=== PATIENT | female | born 1990 | race African-American/Black ===

== ENCOUNTER 2016-06-11 21:04 | Emergency (ER) | payer MEDICAID ==
[2016-06-11 21:10] VITALS: BP 120/84
--- NOTE | 2016-06-11 22:43 | ED ---
Throat Pain/Nasal Congestion - History of Current Complaint Chief Complaint: EDEyeProblem Time Seen by Provider: 06/11/16 22:42 - Allergies/Home Medications Allergies/Adverse Reactions: Allergies Allergy/AdvReac Type Severity Reaction Status Date / Time No Known Allergies Allergy Verified 06/11/16 21:10 PMH/Surg Hx/FS Hx/Imm Hx Cardiovascular History: Denies: Hx Hypertension, Other Cardiovascular Problems/Disorders Respiratory History: Denies: Hx Asthma Psychiatric History: Reports: Hx Substance Abuse - Marijuana - Immunization History Date of Tetanus Vaccine: utd Date of Influenza Vaccine: utd Infectious Disease History: No Infectious Disease History: Denies: Traveled Outside the [place] in Last 30 Days - Social History Alcohol Use: Occasionally Hx Substance Use: Yes Substance Use Type: Reports: Marijuana Substance Use Comment - Amount & Last Used: 1 joint every other day Hx Tobacco Use: Yes Smoking Status (MU): Light Every Day Tobacco Smoker Type: Cigarettes Amount Used/How Often: 1-5/day Have You Smoked in the Last Year: Yes Physical Exam Vital Signs On Initial Exam: Initial Vitals Temp Pulse Resp BP Pulse Ox 98.6 F 75 15 120/84 100 06/11/16 21:07 06/11/16 21:07 06/11/16 21:07 06/11/16 21:07 06/11/16 21:07 - Bela Coma Scale Coma Scale Total: 15 Diagnostics - Vital Signs Vital Signs Temp Pulse Resp BP Pulse Ox 06/11/16 21:07 98.6 F 75 15 120/84 100 - Laboratory Lab Statement: Any lab studies that have been ordered have been reviewed, and results considered in the medical decision making process.
== END 2016-06-12 05:55 | disposition left against medical advice (07) ==
LOC: ED 21:04
DX: H53.8 Other visual disturbances (principal)

== ENCOUNTER 2016-08-04 11:03 | Emergency (ER) | payer SELFPAY ==
[2016-08-04] MEDS ORDERED: Ibuprofen TAB* 400 MG PO ONE (11:48)
--- NOTE | 2016-08-04 11:55 | RAD ---
HISTORY: Trauma with pain, left wrist COMPARISONS: None VIEWS: 3, Frontal, lateral, and oblique views of the left wrist FINDINGS: BONE DENSITY: Normal. BONES: There is no displaced fracture. JOINTS: There is no arthropathy. ALIGNMENT: There is no dislocation. SOFT TISSUES: Unremarkable. OTHER FINDINGS: None. IMPRESSION: NO ACUTE OSSEOUS INJURY. IF SYMPTOMS PERSIST, RECOMMEND REPEAT IMAGING.
--- NOTE | 2016-08-04 12:06 | ED ---
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 When she pulled the arm out her left wrist and forearm were extremely painful. She thought she just sprained it but found that any movement became increasingly painful. She noticed swelling at the wrist. She denies previous injury to this wrist and is mostly right handed. - History of Current Complaint Chief Complaint: EDExtremityUpper Stated Complaint: LT WRIST PAIN Time Seen by Provider: 08/04/16 11:20 Hx Obtained From: Patient Mechanism Of Injury: Blunt Trauma Onset/Duration: Started Hours Ago, Traumatic, Still Present Timing: Constant Severity Initially: Moderate Severity Currently: Moderate Pain Location: Wrist Character: Throbbing, Stiffness Aggravating Factor(s): Movement Alleviating Factor(s): Nothing Associated Signs & Symptoms: Positive: Swelling Related History: Dominant Hand Right - Allergies/Home Medications Allergies/Adverse Reactions: Allergies Allergy/AdvReac Type Severity Reaction Status Date / Time No Known Allergies Allergy Verified 08/04/16 11:05 PMH/Surg Hx/FS Hx/Imm Hx Previously Healthy: Yes Cardiovascular History: Denies: Hx Hypertension, Other Cardiovascular Problems/Disorders Respiratory History: Denies: Hx Asthma Psychiatric History: Reports: Hx Substance Abuse - Marijuana - Immunization History Date of Tetanus Vaccine: utd Date of Influenza Vaccine: utd Infectious Disease History: No Infectious Disease History: Denies: Traveled Outside the [place] in Last 30 Days - Family History Known Family History: Positive: None - Social History Occupation: Employed Full-time Lives: With Family Alcohol Use: None Hx Substance Use: Yes Substance Use Type: Reports: Marijuana Substance Use Comment - Amount & Last Used: 1 joint every other day Hx Tobacco Use: Yes Smoking Status (MU): Light Every Day Tobacco Smoker Type: Cigarettes Amount Used/How Often: 1-5/day Have You Smoked in the Last Year: Yes Cessation Counseling: Patient Advised to Stop Review of Systems Positive: Myalgia, Edema - mild Negative: Weakness, Paresthesia, Numbness All Other Systems Reviewed And Are Negative: Yes Physical Exam Triage Information Reviewed: Yes Vital Signs On Initial Exam: Initial Vitals Temp Pulse Resp BP Pulse Ox 97.9 F 64 14 124/82 100 08/04/16 11:05 08/04/16 11:05 08/04/16 11:05 08/04/16 11:05 08/04/16 11:05 Vital Signs Reviewed: Yes Appearance: Positive: Well-Appearing, Well-Nourished, Pain Distress Skin: Positive: Warm, Skin Color Reflects Adequate Perfusion, Dry, Soft Head/Face: Positive: Normal Head/Face Inspection Eyes: Positive: EOMI, GWYN, Conjunctiva Clear Respiratory/Lung Sounds: Positive: Breath Sounds Present Cardiovascular: Positive: RRR Musculoskeletal: Positive: Limited @ - left wrist flexion, extension, ulnar and radial deviation limited by pain, Pain @ - TTP left, Edema Left - mild Neurological: Positive: NV Bundle Intact Distally Psychiatric: Positive: Affect/Mood Appropriate AVPU Assessment: Alert Diagnostics - Vital Signs Vital Signs Temp Pulse Resp BP Pulse Ox 08/04/16 11:15 97.9 F 64 14 124/82 100 08/04/16 11:05 97.9 F 64 14 124/82 100 - Laboratory Lab Statement: Any lab studies that have been ordered have been reviewed, and results considered in the medical decision making process. Course/Dx - Diagnoses Differential Diagnosis/HQI/PQRI: Positive: Arthritis, Bursitis, Contusion, Fracture (Closed), Strain, Sprain Provider Diagnoses: Strain of left wrist Discharge - Discharge Plan Condition: Stable Disposition: HOME Prescriptions: Ibuprofen TAB* [Motrin TAB* 600 MG] 600 mg PO Q6H PRN #60 tab PRN Reason: Pain Patient Education Materials: Muscle Strain (ED) Forms: *Work Release Additional Instructions: Wear your splint to protect you as your pain improves. Come out of the splint several times daily to perform gentle range of motion exercises to avoid stiffness. Elevate your hand above your heart and apply ice for 20 minutes several times daily to decrease swelling and pain. Use ibuprofen 600mg three times daily with meals for the next 3-5 days to decrease swelling and pain as well. Follow-up with your primary care provider in 3-5 days for evaluation. Return to the emergency department if your symptoms worsen.
[2016-08-04 12:40] VITALS: BP 129/80
== END 2016-08-04 12:38 | disposition home or self-care (01) ==
LOC: ED 11:03
DX: S63.502A Unspecified sprain of left wrist, initial encounter (principal); F17.210 Nicotine dependence, cigarettes, uncomplicated; W20.8XXA Other cause of strike by thrown, projected or falling object, initial encounter; Y93.E9 Activity, other interior property and clothing maintenance; Y92.9 Unspecified place or not applicable
CPT/HCPCS: 99282; A9270-GY

== ENCOUNTER 2017-11-12 14:45 | Emergency (ER) | payer SELFPAY ==
[2017-11-12] MEDS ORDERED: LORazepam TAB(*) 1 MG PO ONE (15:13)
--- NOTE | 2017-11-12 15:20 | ED ---
Substance Abuse/Use - HPI Summary HPI Summary: This is gary Xiong documenting for attending Mike Santos MD. This patient is a 27 year old F presenting to [facility] with a chief complaint of substance abuse that occurred yesterday. Pt took a blue pill, which she thinks was Ecstasy, last night and this morning she woke up with abd pain. Pt believes her pupils look huge and she still feels very high. Patient reports feeling jittery and nervous. - History Of Current Complaint Chief Complaint: EDSubstanceAbuse Stated Complaint: JITTERS/SWEATING/DRUG INTAKE Time Seen by Provider: 11/12/17 15:02 Hx Obtained From: Patient Onset/Duration of Drug/ETOH Abuse: Days - last night Ingestion History: Type/Name Of Drug - Probably Ecstasy, Amount Ingested - 1 pill Severity Initially: Moderate Severity Currently: Moderate Character: Anxious - Allergies/Home Medications Allergies/Adverse Reactions: Allergies Allergy/AdvReac Type Severity Reaction Status Date / Time No Known Allergies Allergy Verified 08/04/16 11:05 Home Medications: Home Medications NK [No Home Medications Reported] 11/12/17 [History Confirmed 11/12/17] PMH/Surg Hx/FS Hx/Imm Hx Cardiovascular History: Denies: Hx Hypertension, Other Cardiovascular Problems/Disorders Respiratory History: Denies: Hx Asthma Psychiatric History: Reports: Hx Substance Abuse - Marijuana - Immunization History Date of Tetanus Vaccine: utd Date of Influenza Vaccine: utd Infectious Disease History: No Infectious Disease History: Denies: Traveled Outside the [place] in Last 30 Days - Family History Known Family History: Positive: None - Social History Alcohol Use: None Hx Substance Use: Yes Substance Use Type: Reports: Marijuana Substance Use Comment - Amount & Last Used: 1 joint every other day Hx Tobacco Use: Yes Smoking Status (MU): Light Every Day Tobacco Smoker Type: Cigarettes Amount Used/How Often: 1-5/day Have You Smoked in the Last Year: Yes Review of Systems Negative: Fever Positive: Abdominal Pain Positive: Anxious All Other Systems Reviewed And Are Negative: Yes Physical Exam - Summary Physical Exam Summary: Appearance: The patient is well-nourished in no acute distress and in no acute pain. Skin: The skin is warm and dry and skin color reflects adequate perfusion. HEENT: The head is normocephalic and atraumatic. The pupils are 4-5 mm. The conjunctivae are clear and without drainage. Nares are patent and without drainage. Mouth reveals moist mucous membranes and the throat is without erythema and exudate. The external ears are intact. The ear canals are patent and without drainage. The tympanic membranes are intact. Neck: The neck is supple with full range of motion and non-tender. There are no carotid bruits. There is no neck vein distension. Respiratory: Chest is non-tender. Lungs are clear to auscultation and breath sounds are symmetrical and equal. Cardiovascular: Heart is regular rate and rhythm. There is no murmur or rub auscultated. There is no peripheral edema and pulses are symmetrical and equal. Abdomen: The abdomen is soft and non-tender. There are normal bowel sounds heard in all four quadrants and there is no organomegaly palpated. Musculoskeletal: There is no back tenderness noted. Extremities are non-tender with full range of motion. There is good capillary refill. There is no peripheral edema or calf tenderness elicited. Neurological: Patient is alert and oriented to person, place and time. The patient has symmetrical motor strength in all four extremities. Cranial nerves are grossly intact. Deep tendon reflexes are symmetrical and equal in all four extremities. Psychiatric: The patient has an appropriate affect. Triage Information Reviewed: Yes Vital Signs On Initial Exam: Initial Vitals Temp Pulse Resp BP Pulse Ox 98.8 F 77 17 137/85 100 11/12/17 14:57 11/12/17 14:57 11/12/17 14:57 11/12/17 14:57 11/12/17 14:57 Vital Signs Reviewed: Yes Diagnostics - Vital Signs Vital Signs Temp Pulse Resp BP Pulse Ox 11/12/17 14:57 98.8 F 77 17 137/85 100 - Laboratory Lab Statement: Any lab studies that have been ordered have been reviewed, and results considered in the medical decision making process. Course/Dx - Course Course Of Treatment: Ms. Rausch presented complaining that she took ecstasy about 3 AM did manage to get a few hours sleep but woke up in felt just as high as before. She says she doesn't like the feeling and that she has a history of anxiety. Her pupils weren't that big. She was given a dose of by mouth Ativan and felt much improved. - Diagnoses Provider Diagnoses: Medication side effect Discharge - Sign-Out/Discharge Documenting (check all that apply): Patient Departure - Discharge - Discharge Plan Condition: Stable Disposition: HOME Referrals: [facility] [place] [facility] REFERRAL [Outside] - If Needed Additional Instructions: RETURN TO THE EMERGENCY DEPARTMENT FOR CHANGING OR WORSENING SYMPTOMS. - Billing Disposition and Condition Condition: STABLE Disposition: Home
[2017-11-12 18:14] VITALS: BP 115/83
== END 2017-11-12 18:14 | disposition home or self-care (01) ==
LOC: ED 14:45
DX: F16.10 Hallucinogen abuse, uncomplicated (principal); F17.210 Nicotine dependence, cigarettes, uncomplicated
CPT/HCPCS: 99282; A9270-GY

== ENCOUNTER 2018-11-06 07:41 | Emergency (ER) | payer OTHER ==
--- NOTE | 2018-11-06 08:02 | ED ---
GI/ HPI - HPI Summary HPI Summary: The pt is a 27 yr old female presenting to [facility] c/o nausea and hematemesis beginning 1 hour [employer]NATIONAL [employer]AX [employer]. She was feeling nauseous this morning and vomited twice with production of blood. She notes having felt nauseous intermittently since her began. There was a small amount blood produced from the first time she vomited and a greater amount from the second time. The pt describes the blood as bright red in coloration. She rates her current pain intensity a 6/10. She is 9 weeks into her and has a G/P/A of 2//0. She also reports back pain and mild constipation yesterday but denies sore throat or vaginal discharge. - History of Current Complaint Chief Complaint: EDNauseaVomitDiarrh Stated Complaint: THROWING UP BLOOD 9 WKS PREG PER PT Hx Obtained From: Patient Onset/Duration: Started Hours Ago, Still Present Timing: Intermittent, Lasting Hours Severity: Moderate Current Severity: Moderate Pain Intensity: 6 Associated Signs and Symptoms: Positive: Hematemesis - "bright-red" blood production with vomiting, Back Pain, Nausea, Vomiting, Other: - Negative - sore throat Additional Signs & Symptoms: Negative: Vaginal Discharge - Allergy/Home Medications Allergies/Adverse Reactions: Allergies Allergy/AdvReac Type Severity Reaction Status Date / Time No Known Allergies Allergy Verified 11/06/18 07:49 PMH/Surg Hx/FS Hx/Imm Hx Cardiovascular History: Denies: Hx Hypertension, Other Cardiovascular Problems/Disorders Respiratory History: Denies: Hx Asthma Sensory History: Denies: Hx Legally Blind, Hx Deafness Opthamlomology History: Denies: Hx Legally Blind EENT History: Denies: Hx Deafness Psychiatric History: Reports: Hx Substance Abuse - Marijuana - Immunization History Date of Tetanus Vaccine: utd Date of Influenza Vaccine: utd Infectious Disease History: No Infectious Disease History: Denies: Traveled Outside the [place] in Last 30 Days - Family History Known Family History: Positive: Other - negative - HTN - Social History Alcohol Use: None Hx Substance Use: Yes Substance Use Type: Reports: Marijuana Substance Use Comment - Amount & Last Used: 1 joint every other day Hx Tobacco Use: Yes Smoking Status (MU): Light Every Day Tobacco Smoker Type: Cigarettes Amount Used/How Often: 1-5/day Have You Smoked in the Last Year: Yes Review of Systems Negative: Sore Throat Positive: Vomiting - Positive - hematemesis, Nausea, Other - Positive - constipation Negative: discharge Positive: Other - Positive - back pain All Other Systems Reviewed And Are Negative: Yes Physical Exam - Summary Physical Exam Summary: Constitutional: Well-developed, Well-nourished, Alert. (-) Distressed Skin: Warm, Dry HENT: Normocephalic; Atraumatic Eyes: Conjunctiva normal Neck: Musculoskeletal ROM normal neck. (-) JVD, (-) Stridor, (-) Tracheal deviation Cardio: Rhythm regular, rate normal, Heart sounds normal; Intact distal pulses; The pedal pulses are 2+ and symmetric. Radial pulses are 2+ and symmetric. (-) Murmur Pulmonary/Chest wall: Effort normal. (-) Respiratory distress, (-) Wheezes, (-) Rales Abd: Soft, (-) tenderness, (-) Distension, (-) Guarding, (-) Rebound Musculoskeletal: (-) Edema Lymph: (-) Cervical adenopathy Neuro: Alert, Oriented x3 Psych: Mood and affect Normal Triage Information Reviewed: Yes Vital Signs On Initial Exam: Initial Vitals Temp Pulse Resp BP Pulse Ox 98.6 F 78 16 140/87 100 11/06/18 07:47 11/06/18 07:47 11/06/18 07:47 11/06/18 07:47 11/06/18 07:47 Vital Signs Reviewed: Yes Diagnostics - Vital Signs Vital Signs Temp Pulse Resp BP Pulse Ox 11/06/18 07:47 98.6 F 78 16 140/87 100 - Laboratory Result Diagrams: 11/06/18 08:10 11/06/18 08:10 Lab Statement: Any lab studies that have been ordered have been reviewed, and results considered in the medical decision making process. GIGU Course/Dx - Course Course Of Treatment: The pt is a 27 yr old female presenting to [facility] c/o nausea and hematemesis beginning 1 hour [employer]. She was feeling nauseous this morning and vomited twice with production of blood. The pt describes the blood as bright red in coloration. She rates her current pain intensity a 6/10. She is 9 weeks into her and has a G/P/A of 2/1/0. She also reports back pain and mild constipation yesterday. The physical exam was normal. Test results without any significant abnormalities except for sodium @ 134 and BUN/ Creatinine @ 26.3. In the ED course the pt was given 1000 mls fluids @ 1000 mls/ hr IV, 4 mg Zofran IV, and 20 mg Pepcid IV. The pt is diagnosed with gastritis, and will be discharged home and instructed to follow up with PCP within 3 days. The pt is stable and agreeable with this plan. - Diagnoses Provider Diagnoses: Gastritis Discharge - Sign-Out/Discharge Documenting (check all that apply): Patient Departure - Discharge Patient Received Moderate/Deep Sedation with Procedure: No - Discharge Plan Condition: Stable Disposition: HOME Prescriptions: Famotidine TAB* [Pepcid 20 MG TAB*] 20 mg PO DAILY #20 tab Patient Education Materials: Gastritis (ED) Print Language: GEORGIAN Referrals: [facility] [Outside] - 3 Days Additional Instructions: Follow-up with your ANIMAL CARE ATTENDANT - Billing Disposition and Condition Condition: STABLE Disposition: Home - Attestation Statements Document Initiated by Scribe: Yes Documenting Scribe: Gary Keller Provider For Whom [facility] is Documenting (Include Credential): Marie Lazcano MD Scribe Attestation: IGary, scribed for Marie Banks MD on 11/06/18 at 1719. Scribe Documentation Reviewed: Yes Provider Attestation: The documentation as recorded by the mikeibGary montes de oca accurately reflects the service I personally performed and the decisions made by me, Marie Lazcano MD Status of Scribe Document: Viewed
[2018-11-06] MEDS ORDERED: NS 0.9% 1000 ML** 1,000 ML IV ONE (08:04)
[2018-11-06] MEDS ORDERED: Ondansetron INJ* 2 MG/ML VIAL IV ONE (08:05)
[2018-11-06 08:20] LABS: ABS Basophils 0.1 10^3/ul (0-0.2); ABS Eosinophils 0.1 10^3/ul (0-0.6); ABS Lymphocytes 1.8 10^3/ul (1.0-4.8); ABS Monocytes 0.5 10^3/ul (0-0.8); ABS Neutrophils 6.1 10^3/ul (1.5-7.7); Eosinophil % 1.6 %; Hematocrit 38 % (35-47); Hemoglobin 13.2 g/dL (12.0-16.0); Lymphocyte % 21.4 %; Mean Corpuscular HGB Conc 35 g/dL (31-36); Mean Corpuscular Hemoglobin 30 pg (27-31); Mean Corpuscular Volume 86 fL (80-97); Mean Platelet Volume 7.8 fL (7.4-10.4); Platelet Count 247 10^3/uL (150-450); Red Blood Count 4.45 10^6 /uL (3.70-4.87); Red Cell Distribution Width 14 % (10-15); White Blood Count 8.6 10^3/uL (3.5-10.8)
[2018-11-06] MEDS ORDERED: Famotidine IV* 10 MG/ML 2 ML (20 mg) IV SLOW PU ONE (08:35)
[2018-11-06 08:37] LABS: Albumin 3.9 g/dL (3.2-5.2); Albumin/Globulin Ratio 1.5 (1-3); BUN/Creatinine Ratio 26.3 (8-20); Calcium 9.1 mg/dL (8.6-10.3); EGFR African American 155.1 (>60); EGFR Non-African American 128.2 (>60); Globulin 2.6 g/dL (2-4); Potassium 3.9 mmol/L (3.5-5.0); Total Bilirubin 0.2 mg/dL (0.2-1.0); Total Protein 6.5 g/dL (6.4-8.9)
[2018-11-06 08:41] LABS: Urine Appearance Clear; Urine Bilirubin Negative (Negative); Urine Blood Negative (Negative); Urine Color Yellow; Urine Glucose Negative (Negative); Urine Ketones Negative (Negative); Urine Nitrite Negative (Negative); Urine Protein Negative (Negative); Urine Specific Gravity 1.017 (1.010-1.030); Urine Urobilinogen Negative (Negative)
[2018-11-06 09:41] VITALS: BP 141/83
== END 2018-11-06 09:40 | disposition home or self-care (01) ==
LOC: ED 07:41
DX: O26.891 Other specified pregnancy related conditions, first trimester (principal); K29.70 Gastritis, unspecified, without bleeding; Z3A.09 9 weeks gestation of pregnancy; F17.210 Nicotine dependence, cigarettes, uncomplicated
CPT/HCPCS: 36415; 80053; 81003; 83605; 83690; 84702; 85025; 96361; 96374; 96375; 99283; J2405

== ENCOUNTER 2018-12-26 19:10 | Emergency (ER) | payer OTHER ==
--- NOTE | 2018-12-26 20:00 | ED ---
- HPI Summary HPI Summary: Pt is a 28 y/o F presenting to the ED with a chief complaint of vaginal bleeding. She is 18wks and has not felt her the baby move in about five days (states she usually feels some movement) and had some vaginal bleeding /spotting this morning, so she decided to get it checked out. She reports a 45sec episode of L lower back pain yesterday, constant nausea (normal for her). She denies abd pain, vomiting, vaginal discharge, recent trauma, or recent sexual activity. She notes she had chlamydia when she was 18 but nothing recent. No fevers. No loss of fluid or contractions. A2 - History of Current Complaint Chief Complaint: EDOBProblems Stated Complaint: 4 MONTHS PREG- BLEEDING PER PT Time Seen by Provider: 12/26/18 19:21 Hx Obtained From: Patient Chief Complaint: Vaginal Bleeding Onset/Duration: Started Hours Ago, Resolved Timing: Lasting Minutes Severity: Mild Current Severity: None Pain Intensity: 0 Location of Pain: None Character: None Aggravating Factors: Nothing Alleviating Factors: Nothing Associated Signs and Symptoms: Positive: Nausea, Vaginal Bleeding or Discharge - yes bleeding, no discharge. Negative: Vomiting - Assessment Hx Now: Yes Hx : 4 Hx Para: 1 SAB: 0 IEA: 2 Vaginal Bleeding Amount: Spotting - Additional Pertinent History Maternal Blood Type and Rh: O Positive - Allergies/Home Medications Allergies/Adverse Reactions: Allergies Allergy/AdvReac Type Severity Reaction Status Date / Time No Known Allergies Allergy Verified 12/26/18 19:32 Home Medications: Home Medications NK [No Home Medications Reported] 12/26/18 [History Confirmed 12/26/18] PMH/Surg Hx/FS Hx/Imm Hx Previously Healthy: Yes Cardiovascular History: Denies: Hx Hypertension, Other Cardiovascular Problems/Disorders Respiratory History: Denies: Hx Asthma Sensory History: Denies: Hx Legally Blind, Hx Deafness Opthamlomology History: Denies: Hx Legally Blind Psychiatric History: Reports: Hx Substance Abuse - Marijuana - Immunization History Date of Tetanus Vaccine: utd Date of Influenza Vaccine: utd Infectious Disease History: No Infectious Disease History: Denies: Traveled Outside the [place] in Last 30 Days - Family History Known Family History: Negative: Hypertension - Social History Alcohol Use: None Hx Substance Use: Yes Substance Use Type: Reports: Marijuana Substance Use Comment - Amount & Last Used: 1 joint every other day Hx Tobacco Use: Yes Smoking Status (MU): Former Smoker Type: Cigarettes Amount Used/How Often: 1-5/day Have You Smoked in the Last Year: Yes Review of Systems Positive: Other - polydipsia Positive: Nausea. Negative: Abdominal Pain, Vomiting Positive: other - vaginal bleeding. Negative: discharge Positive: Myalgia - back pain All Other Systems Reviewed And Are Negative: Yes Physical Exam - Summary Physical Exam Summary: Constitutional: Well-developed, Well-nourished, Alert. (-) Distressed Skin: Warm, Dry HENT: Normocephalic; Atraumatic Eyes: Conjunctiva normal Neck: Musculoskeletal ROM normal neck. (-) JVD, (-) Stridor, (-) Nuchal rigidity Cardio: Rhythm regular, rate normal, Heart sounds normal; Intact distal pulses; Radial pulses are 2+ and symmetric. (-) Murmur Pulmonary/Chest wall: Effort normal. (-) Respiratory distress, (-) Wheezes, (-) Rales Abd: Gravid uterus, (-) tenderness, (-) Distension, (-) Guarding, (-) Rebound Musculoskeletal: (-) Edema Lymph: (-) Cervical adenopathy Neuro: Alert, Oriented x3 Psych: Mood and affect Normal - Physical Exam Triage Information Reviewed: Yes Vital Signs Reviewed: Yes - Vaginal Assessment Presentation Comment: us done Diagnostics - Vital Signs Vital Signs Temp Pulse Resp BP Pulse Ox 12/26/18 19:14 98.6 F 92 18 143/88 97 - Laboratory Lab Statement: Any lab studies that have been ordered have been reviewed, and results considered in the medical decision making process. - Ultrasound US Ultrasound Interpretation Completed By: Radiologist Summary of Ultrasound Findings: Single living intrauterine fetus with an ultrasound age of 16 weeks 6 days which is concordant with the clinical age. ED physician has reviewed this report. Re-Evaluation - Re-Evaluation First Eval Change: Improved - d/w patient normal US, she feels well, denies additional episodes of spotting. Will f/u w OB. Course/Dx - Course Course Of Treatment: 28 y/o F at 18 weeks p/w spotting (resolved) and dec activity. - no trauma, recent sexual activity, STDs to suggest cause for bleeding. Check US for placental location and activity. VSS and NAD in room. Patient is O+ does not need Rho-evaristo. UA neg for infection. - not currently bleeding. Denies loss of fluid or contractions. - Diagnoses Provider Diagnoses: Vaginal spotting Discharge ED - Sign-Out/Discharge Documenting (check all that apply): Patient Departure Patient Received Moderate/Deep Sedation with Procedure: No - Discharge Plan Condition: Stable Disposition: HOME Referrals: [facility] [Provider Group] Additional Instructions: You were seen in the emergency department for vaginal bleeding. Your ultrasound showed no abnormalities, If any studies were not completed at the time of discharge you will be called with the relevant results. Please follow up with your primary care doctor in next 2-3 days and return to emergency department for worsening or concerning symptoms. It was a pleasure taking care of you today. - Billing Disposition and Condition Condition: STABLE Disposition: Home - Attestation Statements Document Initiated by Scribe: Yes Documenting Scribe: Kamini Asencio Provider For Whom [facility] is Documenting (Include Credential): Pato Mendez MD. Scribe Attestation: IKamini, scribed for Pato Mendez MD. on 01/03/19 at 1455. Scribe Documentation Reviewed: Yes Provider Attestation: The documentation as recorded by the scribeKamini accurately reflects the service I personally performed and the decisions made by , Pato Mendez MD. Status of Scribe Document: Viewed
[2018-12-26 22:08] LABS: Urine Appearance Clear; Urine Bilirubin Negative (Negative); Urine Blood Negative (Negative); Urine Color Yellow; Urine Glucose Negative (Negative); Urine Ketones 1+ (Negative); Urine Nitrite Negative (Negative); Urine Protein Negative (Negative); Urine Specific Gravity 1.008 (1.010-1.030); Urine Urobilinogen Negative (Negative)
[2018-12-26 22:22] VITALS: BP 120/73
== END 2018-12-26 22:21 | disposition home or self-care (01) ==
LOC: ED 19:10
DX: O20.9 Hemorrhage in early pregnancy, unspecified (principal); Z3A.18 18 weeks gestation of pregnancy; Z87.891 Personal history of nicotine dependence
CPT/HCPCS: 76815; 81003; 99282

== ENCOUNTER 2019-02-02 12:35 | Emergency (ER) | payer OTHER ==
[2019-02-02] MEDS ORDERED: Ciprofloxacin 0.3% OPTH.SOL* BTL LEFT EYE ONE (12:54)
--- NOTE | 2019-02-02 13:01 | ED ---
Throat Pain/Nasal Congestion - HPI Summary HPI Summary: The pt is a 28 yr old female [facility] c/o eye redness and irritation. 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 Her eye began to feel very itchy afterwards and applied water to the eye. After going to sleep she woke up 1 day GUIDANCE DIRECTOR with her left eye still irritated but crusted shut as well. This morning the itchiness and crustiness was worse than the prior day. She rates her current pain severity a 5/10. No aggravating or alleviating factors noted. She also reports eye dryness and clogged ears. She does not smoke, drink, or use recreational drugs. She is with a G/P/A of 3/0. - History of Current Complaint Chief Complaint: EDEyeProblem Time Seen by Provider: 02/02/19 12:47 Hx Obtained From: Patient Onset/Duration: Sudden Onset, Lasting Days, Still Present Severity: Moderate - Allergies/Home Medications Allergies/Adverse Reactions: Allergies Allergy/AdvReac Type Severity Reaction Status Date / Time No Known Allergies Allergy Verified 12/26/18 19:32 PMH/Surg Hx/FS Hx/Imm Hx Cardiovascular History: Denies: Hx Hypertension, Other Cardiovascular Problems/Disorders Respiratory History: Denies: Hx Asthma Sensory History: Denies: Hx Legally Blind, Hx Deafness Opthamlomology History: Denies: Hx Legally Blind Psychiatric History: Reports: Hx Substance Abuse - Marijuana - Surgical History Surgical History: None Surgery Procedure, Year, and Place: none - Immunization History Date of Tetanus Vaccine: utd Date of Influenza Vaccine: utd Infectious Disease History: No Infectious Disease History: Denies: Traveled Outside the [place] in Last 30 Days - Family History Known Family History: Negative: Hypertension - Social History Alcohol Use: None Hx Substance Use: Yes Substance Use Type: Reports: Marijuana Substance Use Comment - Amount & Last Used: 1 joint every other day Hx Tobacco Use: Yes Smoking Status (MU): Former Smoker Type: Cigarettes Amount Used/How Often: 1-5/day Have You Smoked in the Last Year: Yes Review of Systems Positive: Other - pos - pruritis and dryness of left eye Positive: Other - pos - "clogged ears" All Other Systems Reviewed And Are Negative: Yes Physical Exam - Summary Physical Exam Summary: VITAL SIGNS: Reviewed. GENERAL: Patient is a well-developed and nourished female who is lying comfortable in the stretcher. Patient is not in any acute respiratory distress. HEAD AND FACE: No signs of trauma. No ecchymosis, hematomas or skull depressions. No sinus tenderness. EYES: PERRLA, EOMI x 2, left eye injected conjunctiva with some yellowish discharge in left eye, no foreign bodies, no nystagmus. EARS: Hearing grossly intact. Ear canals and tympanic membranes are within normal limits. MOUTH: Oropharynx within normal limits. NECK: Supple, trachea is midline, no adenopathy, no JVD, no carotid bruit, no c- spine tenderness, neck with full ROM. CHEST: Symmetric, no tenderness at palpation. LUNGS: Clear to auscultation bilaterally. No wheezing or crackles. CVS: Regular rate and rhythm, S1 and S2 present, no murmurs or gallops appreciated. ABDOMEN: Soft, non-tender. No signs of distention. No rebound, no guarding, and no masses palpated. Bowel sounds are normal. EXTREMITIES: FROM in all major joints, no edema, no cyanosis or clubbing. NEURO: Alert and oriented x 3. No acute neurological deficits. Speech is normal and follows commands. SKIN: Dry and warm. Triage Information Reviewed: Yes Vital Signs On Initial Exam: Initial Vitals Temp Pulse Resp BP Pulse Ox 98.8 F 98 17 123/70 97 02/02/19 12:38 02/02/19 12:38 02/02/19 12:38 02/02/19 12:38 02/02/19 12:38 Vital Signs Reviewed: Yes Procedures - Sedation Patient Received Moderate/Deep Sedation with Procedure: No Diagnostics - Vital Signs Vital Signs Temp Pulse Resp BP Pulse Ox 02/02/19 12:38 98.8 F 98 17 123/70 97 - Laboratory Lab Statement: Any lab studies that have been ordered have been reviewed, and results considered in the medical decision making process. EENT Course/Dx - Course Assessment/Plan: Patient is a 28-year-old female who presents to the emergency department with left eye irritation with yellowish discharge. He says that the patient has an acute conjunctivitis. The patient was given ciprofloxacin ophthalmic. Patient will be discharged home with follow-up with PCP. The patients visual acuity is 20/20 left and right side and also in both eyes. Patient is hemodynamically stable alert oriented 3. - Diagnoses Provider Diagnoses: Conjunctivitis Discharge ED - Sign-Out/Discharge Documenting (check all that apply): Patient Departure - Discharge Plan Condition: Stable Disposition: HOME Prescriptions: Ciprofloxacin 0.3% OPTH.LYYL* [Cipro 0.3% Opth*] 1 drop LEFT EYE Q2H #1 btl Patient Education Materials: Conjunctivitis (ED) Referrals: [facility] [Outside] - 3 Days Additional Instructions: FOLLOW UP WITH YOUR PRIMARY CARE PROVIDER WITHIN 3 DAYS. RETURN TO THE ED FOR ANY WORSENING OR NEW SYMPTOMS. - Billing Disposition and Condition Condition: STABLE Disposition: Home - Attestation Statements Document Initiated by Scribe: Yes Documenting Scribe: Gary Keller Provider For Whom Easton is Documenting (Include Credential): Wu Durand MD Scribe Attestation: Gary King, scribed for Wu Durand MD on 02/02/19 at 1830. Scribe Documentation Reviewed: Yes Provider Attestation: The documentation as recorded by the Gary vega accurately reflects the service I personally performed and the decisions made by Wu andrade MD Status of Scribe Document: Viewed
--- OUTSIDE RECORDS SUMMARY | 2019-02-02 13:15 | XMS REPORT | Continuity of Care Document ---
:1990 External Reference #:[id number] Author Name Brice Scott M.D. Address [address] [place] [id number] Problems Active Problems Provider Date Primigravida Agueda Santacruz NP Onset: 12/12/2014 Social History Type Date Description Comments Sex Unknown Cigarette Use Current Cigarette Smoker 1-5 Cigarettes Daily Smokeless Tobacco Current Smokeless Tobacco User, Uses Occasionally ETOH Use Does Not Drink Alcohol Recreational Drug Use Regularly uses Marijuana Tobacco Use Start: Unknown Patient is a current smoker, smokes every day Exercise Type/Frequency Does not exercise Seat Belt/Car Seat Always uses seat belt Allergies, Adverse Reactions, Alerts Active Allergies Reaction Severity Comments Date NKDA 02/16/2012 No Known Allergies 03/01/2015 Medications Active Medications SIG Qnty Indications Ordering Date Provider Gummies/Dha may autosub any 60units Desi Vu, 11/14/2018 & Folic Acid chewable pnv w/ CNM dha covered by 0.4-32.5mg Chewtabs pt's insurance History Medications + Complete 1 by mouth Desi Vu, 11/14/2018 - Multi/Dha/Choline/Folate every day CNM 11/14/2018 0.267&373mg THPK Immunizations CPT Code Status Date Vaccine Lot # [id number] Given 05/04/2015 Tetnus, Diptheria Toxoids And Acellular Pertussis, [id number] PT > 7Yrs Old [address] Given 02/06/2015 Influenza Virus Vaccine Split Virus Use For [id number] Individual 3Yr Older Vital Signs Date Vital Result Comment 11/14/2018 10:31am BP Systolic 120 mmHg BP Diastolic 66 mmHg Height 64 inches 5'4" Weight 152.00 lb BMI (Body Mass Index) 26.1 kg/m2 Last Menstrual Period [id number] 2 Parity 1 10/28/2015 12:00am BP Systolic 124 mmHg BP Diastolic 90 mmHg Body Temperature 98.0 F Heart Rate 62 /min Respiratory Rate 16 /min Height 64 inches Weight 130.00 lb Results Test Date Facility Test Result H/L Range Note Laboratory test [facility] Cytology SEE RESULT 1 finding [address] [place] [address] BELOW [phone] GC/Chlamydia Dna [facility] Chlamydia Negative Negative Probe 9 [place] [address] trachomatis Tabitha [phone] Neisseria gonorrhoeae (GC) Tabitha Negative Negative Spinal Muscular 12/06/2018 Old DO Not Use [employer] Results NEGATIVE Negative 2 Atrophy SMN1 2 COPIES SMN2 1 COPY Interpretation SEE BELOW 3 PNL No 12/06/2018 [facility] Rubella Screen Immune Immune 4 Urine [place], [place] [address] [phone] Hemoglobin A1c 5.0 % Normal 4.0-5.6 5 Hepatitis B Surface Ag Negative Negative 6 Syphillis Igg W/Reflex RPR Negative Negative 7 CBC With No 12/06/2018 [facility] White Blood 11.2 10^3/uL High 3.5-10.8 [place] [address] Count [phone] Red Blood Count 4.50 10^6/uL Normal 3.70-4.87 Hemoglobin 13.0 g/dL Normal 12.0-16.0 Hematocrit 39 % Normal 35-47 Mean Corpuscular Volume 87 fL Normal 80-97 Mean Corpuscular Hemoglobin 29 pg Normal 27-31 Mean Corpuscular HGB Conc 33 g/dL Normal 31-36 Red Cell Distribution Width 14 % Normal 10-15 Platelet Count 261 10^3/uL Normal 150-450 Mean Platelet Volume 8.6 fL Normal 7.4-10.4 Type And Screen 12/06/2018 [facility] Patient Blood Type O Positive [place], [place] [id number] [phone] Antibody Screen NEGATIVE Lead 12/06/2018 [facility] Lead,Venous, B < 1.0 g/dL 0.0- 4.9 8 [place] [address] [phone] Venous/Capillary Venous Submitting Laboratory Phone [phone] HIV 1&2 p24 12/06/2018 [facility] HIV 4th [place] [address] Generation [phone] Urine Culture 11/14/2018 [facility] Urine SEE RESULT 10 [place] [address] Culture BELOW Sensitivities [phone] 1 SEE RESULT BELOW Name: GEORGE RAUSCH Judi : [address]: Desi Vu CNM Acct: [id number] Unit: [id number] AGE: 28 Location: [facility] Re12/06/18 SEX: F Status: REG REF SPEC: [id number] [place]: 12/06/18-[address] [facility] [address]: Desi Vu CNM REQ: [id number] RECD: 12/06/18-1556 STATUS: SOUT _ ORDERED: TP IMAGE ANALYS, CUSTOMER 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 Ectocervical/Endocervical Specimen Adequacy: Satisfactory of evaluation Transformation zone component identified Patient Information: HPV: Thin Layer Pap Test w/reflex to high risk HPV RNA testing when ASCUS Actual Specimen Date: 12/06/18 Last Menstrual Date: 08/30/18 Date of Last Specimen: 12/12/14 ?: Y Post Menopausal?: N Hysterectomy?: N Previous Abnormal Pap Smears?:Y If Yes, enter Diagnosis: Atypical Squamous cells of uncertain significance. Signed by and Reported on: Heidi Larsen MD 12/11/18 1700 This Pap test was evaluated with the assistance of the [employer] [place] Test Imaging System. Due to cytologic findings at the first crusher microscope, comprehensive manual rescreening by a Machined Parts Quality Inspector may be required. The Pap Smear is a screening test designed to aid in the detection of premalignant and malignant conditions of the uterine cervix. It is not a diagnostic procedure and should not be used as the sole means of detecting cervical cancer. Both false- positive and false- negative reports do occur. Depending on your risk status, a Pap smear should be obtained and evaluated every 1-3 years. END OF REPORT DEPARTMENT OF PATHOLOGY, [address] [place] [address] Fortunato Peter M.D. Director [facility] # [id number] 2 NEGATIVE; AT LEAST TWO COPIES OF THE SMN1 GENE DETECTED 3 This analysis identified at least two (2) copies of the SMN1 gene. This result does not rule out carrier status or a diagnosis of spinal muscular atrophy (SMA).* This testing cannot differentiate between individuals who have all copies of the SMN1 gene on one chromosome and NONE on the opposite chromosome as well as other mutations in the SMN1 gene. The risk for mutations that cause SMA other than the deletions tested depends greatly on family history and clinical presentation. Risk to be a carrier Ethnicity Detection Prior 2 SMN1 3 SMN1 rate carrier copy copy risk result result 95% 1 in 35 1 in 632 1 in 3500 Ashkenazi 90% 1 in 41 1 in 350 1 in 4000 Caodaism 93% 1 in 53 1 in 628 1 in 5000 71% 1 in 66 1 in 121 1 in 3000 Ecuadorean 91% 1 in 117 1 in 1061 1 in [address]57 SUPPLEMENTAL INFORMATION Spinal muscular atrophy (SMA) is a family of disorders that are characterized by progressive muscle weakness due to loss of anterior horn cells. A deletion of exon 7 in the SMN1 gene causes 95% of SMA. New mutations account for approximately 2% of SMA. SMN2 genes are able to produce a protein identical to that of the SMN1 gene, but at a reduced (10-20%) capacity. As a result the number of copies of SMN2 has been shown to influence the severity of the disease. This assay detects the copy number of the two common genes (SMN1 and SMN2) recommended by the [place] [employer] (ACMG) for population-based SMA carrier screening. Health care providers, please contact your local [facility] genetic counselor or call [employer] [facility] at [employer] ([phone]) for assistance with the interpretation of these results. METHODOLOGY: The copy number of the SMA genes (SMN1 and SMN2) is detected by quantitative PCR. Although rare, false positive or false negative results may occur. All results should be interpreted in context of clinical findings, relevant history, and other laboratory data. Laboratory results and submitted clinical information reviewed by Carlos Hodges MD, MHA, FACMG, CGMBS. This test was developed and its analytical performance characteristics have been determined by [facility]. It has not been cleared or approved by FDA. This assay has been validated pursuant to the CLIA regulations and is used for clinical purposes. 4 [id number] 5 Therapeutic target for the treatment of diabetes mellitus patients is <7% HBA1C, and in selective patients <6.0%. Please refer to [place] [employer] diabetic care guidelines for further information. 6 [id number] 7 [id number] 8 ADDITIONAL INFORMATION Testing performed by Inductively Coupled Plasma-Mass Spectrometry (ICP-MS). This test was developed and its performance characteristics determined by [facility] in a manner consistent with CLIA requirements. This test has not been cleared or approved by the U.S. Food and Drug Administration. 9 Test Performed by: [facility] [address] [place] [id number] [employer]: Lauro Rosenthal M.D. Ph.D.; CLIA# [id number] 10 SEE RESULT BELOW Name: GEORGE RAUSCH Judi : [address]: Desi NAVA Acct: [id number] Unit: [id number] AGE: 28 Location: [facility] Re11/14/18 SEX: F Status: REG REF SPEC: [id number] FEDER[place]: 11/14/18-[address]: Desi Vu CNM REQ: [id number] RECD: 11/14/18 STATUS: COMP _ SOURCE: URINE SPDESC: ORDERED: Urine Culture COMMENTS: [id number] Urine Source: Random Procedure Result Reported Site Urine Culture Final 11/15/18- 1602 ML No growth of clinically significant organisms * ML - Main Lab . END OF REPORT DEPARTMENT OF PATHOLOGY, [address] [place] [address] Fortunato Peter M.D. Director [facility] # [id number] Procedures Date Code Description Status 01/09/2019 59847 Echography Uterus Complete Completed 01/09/2019 85961 Colposcopy Of The Cervix Inc Upper/Adjacent Vagina Completed 11/14/2018 64427 OB Ultrasound First Trimester Completed Medical Devices Description No Information Available Encounters Description No Information Available Assessments Date Code Description Provider 01/09/2019 Z36.9 Encounter for screening, Laboratory unspecified 01/09/2019 R87.612 Low grade squamous intraepithelial lesion Brice Scott M.D. on cytologic smear of cervix (LGSIL) 01/09/2019 Z36.3 Encounter for screening for Ultrasounds malformations 12/06/2018 Z36.9 Encounter for screening, Abdifatah Murillo MD unspecified 12/06/2018 Z34.82 Encounter for supervision of other normal Desi Vu CNM , second trimester 12/06/2018 Z36.9 Encounter for screening, Laboratory unspecified 11/14/2018 O26.91 related conditions, unspecified, Joanne Arizmendi MD first trimester 11/14/2018 Z34.81 Encounter for supervision of other normal Desi Vu CNM , first trimester 11/14/2018 O26.91 related conditions, unspecified, Ultrasounds first trimester Plan of Treatment No Information Available Functional Status Description No Information Available Mental Status Description No Information Available Referrals Description No Information Available
[2019-02-02 13:20] VITALS: BP 123/74
== END 2019-02-02 13:16 | disposition home or self-care (01) ==
LOC: ED 12:35
DX: H10.9 Unspecified conjunctivitis (principal); Z87.891 Personal history of nicotine dependence
CPT/HCPCS: 99282; A9270-GY

== ENCOUNTER 2019-05-26 11:06 | Emergency (ER) | payer OTHER ==
--- OUTSIDE RECORDS SUMMARY | 2019-05-26 11:16 | XMS REPORT ---
:1990 Author Organization [facility] Care Team Providers Name Role Phone Unavailable Unavailable Unavailable Problems Condition Condition Condition Status Onset Resolution Last Treating Comments Name Details Category Date Date Treatment Clinician Date Supervision Supervision Diagnosis Active [facility] 8-02 Bravo risk risk , , unspecified unspecified , first , first trimester trimester Allergies, Adverse Reactions, Alerts Allergy Allergy Status Severity Reaction(s) Onset Inactive Treating Comments Name Type Date Date Clinician Unknown None Active Unknown None Unknown No Known Allergies For This Patient Medications Ordered Filled Start Stop Current Ordering Indication Dosage Frequency Signature Comments Components Medication Medication Date Date Medication? Clinician (SIG) Name Name No Known No Known No None None None Medications Medications For This For This Patient Patient Procedures This patient has no known procedures. Results This patient has no known results.
[2019-05-26 11:27] LABS: Influenza B Molecular POSITIVE (Negative)
--- NOTE | 2019-05-26 12:20 | ED ---
Influenza-Like Illness - HPI Summary HPI Summary: 28 y/o female presented to [facility] for influenza symptoms beginning on 05/25 at 0200 when she was woken up from her sleep. Pt is experiencing fever, chills, rhinrrhea and cough. Pt is 38 weeks with her 2nd child. Her due date is 06/06/19 and she has an induction scheduled for 05/30/19. She sees [facility]. G/P/A is . - History of Current Complaint Chief Complaint: EDFluSymptoms Time Seen by Provider: 05/26/19 12:08 Hx Obtained From: Patient Onset/Duration: Lasting Days Associated Signs & Symptoms: Fever, Cough - Allergy/Home Medications Allergies/Adverse Reactions: Allergies Allergy/AdvReac Type Severity Reaction Status Date / Time No Known Allergies Allergy Verified 05/26/19 11:12 PMH/Surg Hx/FS Hx/Imm Hx Cardiovascular History: Denies: Hx Hypertension, Other Cardiovascular Problems/Disorders Respiratory History: Denies: Hx Asthma Sensory History: Denies: Hx Legally Blind, Hx Deafness Opthamlomology History: Denies: Hx Legally Blind Psychiatric History: Reports: Hx Substance Abuse - Marijuana - Surgical History Surgery Procedure, Year, and Place: none - Immunization History Date of Tetanus Vaccine: utd Date of Influenza Vaccine: utd Infectious Disease History: No Infectious Disease History: Denies: Traveled Outside the [place] in Last 30 Days - Family History Known Family History: Negative: Hypertension - Social History Alcohol Use: None Hx Substance Use: Yes Substance Use Type: Reports: None Substance Use Comment - Amount & Last Used: 1 joint every other day Hx Tobacco Use: Yes Smoking Status (MU): Former Smoker Type: Cigarettes Amount Used/How Often: 1-5/day Have You Smoked in the Last Year: Yes Review of Systems Positive: Fever, Chills Positive: Cough All Other Systems Reviewed And Are Negative: Yes Physical Exam - Summary Physical Exam Summary: Tachycardic Gravid uterus Triage Information Reviewed: Yes Vital Signs On Initial Exam: Initial Vitals Temp Pulse Resp BP Pulse Ox 97.7 F 116 19 138/80 97 05/26/19 11:08 05/26/19 11:08 05/26/19 11:08 05/26/19 11:08 05/26/19 11:08 Vital Signs Reviewed: Yes Procedures - Sedation Patient Received Moderate/Deep Sedation with Procedure: No Diagnostics - Vital Signs Vital Signs Temp Pulse Resp BP Pulse Ox 05/26/19 11:08 97.7 F 116 19 138/80 97 - Laboratory Lab Results: Lab Results 05/26/19 Range/Units 11:11 Influenza A (Rapid) Not Reportable Influenza B (Rapid) Positive H (Negative) Lab Statement: Any lab studies that have been ordered have been reviewed, and results considered in the medical decision making process. Flu Symptom Course/Dx - Course Course Of Treatment: 28 y/o F at 38 weeks p/w flu like symtoms. - VS tachycardic febrile. Flu B positive. Patient well appearing. Patient does not have increased work of breathing, productive cough to suggest pneumonia. No headache, neck pain or nuchal rigidity. Tolerating by mouth. Plan for discharge w tamiflu BID 5 days, symptomatic control and will return for worsening symptoms. 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 requested albuterol for congestion, given 2 puffs from inhaler here. Can take PRN - Diagnoses Provider Diagnoses: Influenza B - Physician Notifications Discussed Care Of Patient With: Brice Scott Time Discussed With Above Provider: 12:28 Instructed by Provider To: Other - Pt case was discussed with De. Scott, who will cancel the induction and ask that the pt follow up at the office in 1-2 days. Discharge ED - Sign-Out/Discharge Documenting (check all that apply): Patient Departure - dc - Discharge Plan Condition: Stable Disposition: HOME Prescriptions: Oseltamivir CAP* [Tamiflu CAP*] 75 mg PO BID 5 Days #10 cap Patient Education Materials: Influenza (ED) Referrals: [facility] [Outside] Brice Scott MD [Medical Doctor] - 1 Day Additional Instructions: You were seen in the emergency department for the flu. You tested positive for the flu. Please take Tamiflu twice a day for 5 days. Please follow up with your doctor. You can take Tylenol as needed for fever, please drink lots of fluids including Gatorade and water. Call your OBGYN doctor tomorrow. Please follow up with your primary care doctor in next 2-3 days and return to emergency department for fever greater than 5 days, trouble breathing, worsening or concerning symptoms. It was a pleasure taking care of you today. - Billing Disposition and Condition Condition: STABLE Disposition: Home - Attestation Statements Document Initiated by [place]: Yes Documenting Scribe: Jim Cazares Provider For Whom [place]on is Documenting (Include Credential): Pato Mendez MD Scribe Attestation: IJim, scribed for Pato Mendez MD on 05/26/19 at 1330. Scribe Documentation Reviewed: Yes Provider Attestation: The documentation as recorded by the scribe, Jim Cazares accurately reflects the service I personally performed and the decisions made by , Pato Mendez MD Status of Scribe Document: Viewed
[2019-05-26] MEDS: Oseltamivir CAP* 75 MG CAP PO ONE ×2 (12:37→12:39)
[2019-05-26] MEDS: Acetaminophen TAB* 325 MG PO ONE ×2 (12:37→12:39)
[2019-05-26] MEDS ORDERED: Albuterol HFA INHALER* 8 gm MDI INH ONE (13:25)
[2019-05-26 13:50] VITALS: BP 124/72
== END 2019-05-26 13:49 | disposition home or self-care (01) ==
LOC: ED 11:06
DX: O26.893 Other specified pregnancy related conditions, third trimester (principal); J10.1 Influenza due to other identified influenza virus with other respiratory manifestations; Z3A.38 38 weeks gestation of pregnancy; Z87.891 Personal history of nicotine dependence
CPT/HCPCS: 99282; A9270-GY

== ENCOUNTER 2019-06-02 15:42 | Inpatient (IN) | payer OTHER ==
[2019-06-02] MEDS ORDERED: Lactated Ringers 1000 ML Bag* 1,000 ML IV ONE ×2 (16:48→22:03)
[2019-06-02] MEDS ORDERED: Buffered Lidocaine 1% SYRIN* 1 ML/SYRINGE INTRADERM ONE (16:48)
[2019-06-02] MEDS ORDERED: Oxytocin in LR* 20 UNITS/1,000 ML BAG IVPB SCH (17:00)
[2019-06-02] MEDS ORDERED: Lactated Ringers 1000 ML Bag* 1,000 ML IV SCH ×2 (17:00→23:00)
--- NOTE | 2019-06-02 17:01 | HP ---
General Information - Reason for Visit Painful contractions leakage of fluid - General Information Maternal Age: 28 Grav: 3 Para: 1 SAB: 0 IEA: 1 Estimated Due Date: 06/06/19 Determined By: LMP Gestational Age in Weeks/Days: 39w3d Maternal Blood Type and Rh: O Positive - Results this Serology/RPR Result: Non-Reactive Rubella Result: Immune HBsAg Result: Negative HIV Result: Negative GBS Culture Result: Negative Past Medical History Delivery History: Hx Uncomplicated Vaginal Delivery Pertinent Past Medical History: See Records Pertinent Past Surgical History: None Pertinent Family History: See Records - Antepartal Records Antepartal Records: Reviewed, Complicated by: - THC use Review of Systems Constitutional: Uncomfortable CV Complaint: No Respiratory: Shortness of Breath: No Gastrointestinal: No Nausea/Vomiting, Normal Bowel Movement Genitourinary: Leaking Fluid, No Dysuria, No Bleeding Musculoskeletal: Back Pain, Contractions Neurological: No Headache, No Visual Changes Movement: Normal Exam Allergies/Adverse Reactions: Allergies No Known Allergies Allergy (Verified 05/26/19 11:12) T 97.4 P 80 RR 18 BP 136/84 Lab Values - Entire Visit: Laboratory Tests 06/02/19 15:55 Vag Amniotic Fld Detect Positive - Measurements Height: 5 ft 4.5 in Weight: 174 lb Weight in lbs: 174.381502 Body Mass Index (BMI): 29.4 Pre- Weight: 150 lb Weight Gained This : 24 lbs and 0 ozs - Exam Breast: Breast Exam Deferred CVA: No CVA Tenderness Extremities: No Edema Heart: Normal Rhythm/Heart Sounds HEENT: No Significant Findings Lungs: Clear Bilaterally Rectal: Rectal Exam Deferred Reflexes: DTR 2+ Thyroid: No Thyromegaly - Abdominal Exam Abdomen Exam: Non-Tender, Fundal Height Consistent with Dates - Ultrasound/Biophysical Profile Ultrasound Status: Not Done Targeted Exam Findings See L&D Outpatient Visit Provider Note for Findings: Yes Estimated Weight: 7#4oz via leopolds Cervical Exam: 2cm Effacement: 60% Station: -2 Presenting Part: Vertex Membrane Status: SROM Amniotic Fluid Evaluation: Positive ROM Plus Bleeding/Discharge: None EFM Findings - External Monitor Findings Baseline Heart Rate: 140 External Monitor Findings: Accelerations Present, No Pattern of Variable or Late Decelerations, Variability Moderate, Baseline Stable Contractions: Irregular Assessment/Plan - Assessment 28 y/o with SROM, early labor, unable to identify precise time of rupture, feels she has been leaking for days, but that painful contractions began all of a sudden around 3pm today. - Cervix 2cm/60/-2 vertex - Hx of THC use in - SW consult post - Hx of spine fracture in 3rd grade, tolerated epidural previously - RH+/Rubella Immune - GBS negative - Plan Plan: Admit - Anticipate Vaginal Delivery Plan Comment: Will augment with Pitocin if indicated - Date/Time of Admission Date of Admission: 06/02/19 Time of Admission: 17:00
[2019-06-02 17:45] LABS: Urine Benzodiazepine Screen None Detected (None Detect); Urine Opiates Screen None Detected (None Detect)
[2019-06-02 17:50] LABS: ABS Eosinophils 0.1 10^3/ul (0-0.6); ABS Lymphocytes 1.9 10^3/ul (1.0-4.8); ABS Monocytes 0.4 10^3/ul (0-0.8); ABS Neutrophils 4.8 10^3/ul (1.5-7.7); Eosinophil % 0.9 %; Hematocrit 37 % (35-47); Hemoglobin 12.8 g/dL (12.0-16.0); Lymphocyte % 25.8 %; Mean Corpuscular HGB Conc 35 g/dL (31-36); Mean Corpuscular Hemoglobin 30 pg (27-31); Mean Corpuscular Volume 86 fL (80-97); Nucleated Red Blood Cells % 0.1; Platelet Count 290 10^3/uL (150-450); Red Blood Count 4.29 10^6 /uL (3.70-4.87); Red Cell Distribution Width 14 % (10-15); White Blood Count 7.2 10^3/uL (3.5-10.8)
[2019-06-02] MEDS ORDERED: Morphine 10 MG/ML VIAL (1 ml) IV PRN (19:45)
[2019-06-02] MEDS ORDERED: Promethazine INJ(RESTRICTED)* 25 MG/ML 1 ML VIAL IV PRN (19:46)
--- NOTE | 2019-06-02 19:49 | PN ---
Progress Note - Progress Note Date of Service: 06/02/19 Note: Pt becoming more uncomfortable. Pitocin is a 6mU. Lionel q 2 minutes. FHT is reactive with baseline of 145/moderate/+accels/no decels. Requests pain medication, discussed proceeding with Epidural versus trying IV pain medications first, pt elects to try IV Morphine. Will give 5mg. Keep Pit at 6, as pt appears to be lionel adequately. Re-examine as clinically indicated. DO BARBIE Hernandez
[2019-06-02] MEDS ORDERED: Morphine 10 MG/ML VIAL (1 ml) ONE (20:00)
[2019-06-02] MEDS ORDERED: Promethazine INJ(RESTRICTED)* 25 MG/ML 1 ML VIAL ONE (20:00)
[2019-06-02] MEDS ORDERED: OBEPIDURAL* 250 ML EPIDURAL ONE (21:03)
--- NOTE | 2019-06-02 21:04 | PN ---
Progress Note - Progress Note Date of Service: 06/02/19 Note: Pt remains uncomfortable s/p IV pain medications. Requests Epidural. Re-examined and is 3cm/70%/-1. Anesthesia notified and agrees to come for placement. FHT is reactive and reassuring. Will turn off Pit while waiting for epidural secondary to patient discomfort, resume once epidural in place. DO BARBIE Hernandez
[2019-06-02] MEDS ORDERED: Lactated Ringers 1000 ML Bag* 500 ML IV PRN ×2 (22:03)
[2019-06-02] MEDS ORDERED: Sodium Citrate/Citric Acid* 15 ML UDC PO PRN (22:03)
[2019-06-02] MEDS ORDERED: Phenylephrine 40 MCG/ML SYRINGE IV PUSH PRN ×2 (22:03)
[2019-06-02] MEDS ORDERED: Famotidine TAB* 20 MG PO PRN (22:03)
[2019-06-02] MEDS ORDERED: OBEPIDURAL* 250 ML EPIDURAL SCH (23:00)
[2019-06-03] MEDS ORDERED: Witch Hazel PAD* JAR TOPICAL PRN (00:38)
[2019-06-03] MEDS ORDERED: Dibucaine 1% 28.35 GM TUBE PR PRN (00:38)
[2019-06-03] MEDS ORDERED: Glycerin ADULT SUPP PR PRN (00:38)
--- NOTE | 2019-06-03 00:43 | PROCNOTE ---
[facility] OB: Delivery Note - Delivery A Date of : 06/02/19 Time of : 23:56 [place] Sex: Male Score 1 Minute: 8 Score 5 Minutes: 9 Gestational Age in Weeks and Days at Delivery: 39 Weeks and 3 Days Delivery Method: Spontaneous Vaginal Labor: Induced Did Patient attempt ?: N/A, No Previous Amniotic Fluid: Clear Estimated Blood Loss: 500 Anesthesia/Analgesia: CEI for Labor Delivered By: Chucky Dutta JR - Nursery Level of Nursery: Regular/Bedside - Perineum Perineal Injury: Periurethral Laceration Perineal Injury Comment: small right periurethral laceration repaired with two interupted 3-0 vicryl Perineal Repair: None - Events Delivery Events of Note: Pitocin During Labor, Post- Bleeding - Meds Given - IM Methergine and MS Misoprostol given, suspect bleeding/mild atony secondary to rapid labor - Additional Delivery Notes Additional Delivery Notes: presented with rupture of membranes, irregular contractions. Augmented with Pitocin. Progressed rapidly from 2cm to Fully dilated in 4 hours. Delivered over intact perineum. Small right periurethral laceration repaired with two interrupted 3-0 vicryl sutures for hemostasis. Blood clots expressed times 2 with evacuation and fundal massage. Mild atony, suspect secondary to rapid labor, pt given Misoprostol 800mcg and IM Methergine 0.2mg x 1 with good effect. Mother and doing well at time of this note. DO BARBIE Hernandez
[2019-06-03] MEDS ORDERED: Methylergonovine INJ* 0.2 MG/ML 1ML AMP IM ONE (00:46)
[2019-06-03] MEDS ORDERED: Misoprostol TAB* 200 MCG PR ONE (00:46)
[2019-06-03] MEDS ORDERED: Lactated Ringers 1000 ML Bag* 1,000 ML IV SCH (01:00)
[2019-06-03] MEDS: Ibuprofen TAB* 600 MG PO PRN ×3 (01:33→17:06)
[2019-06-03] MEDS ORDERED: diPHENhydraMINE PO* 50 MG PO ONE (02:00)
[2019-06-03] MEDS ORDERED: diPHENhydraMINE PO* 50 MG ONE (02:04)
[2019-06-03] MEDS ORDERED: Simethicone TAB* 80 MG TAB.CHEW PO SCH (08:30)
[2019-06-03] MEDS: Docusate CAP* 100 MG PO SCH ×3 (10:59→21:00)
[2019-06-03] MEDS: Acetaminophen TAB* 325 MG PO PRN ×2 (13:09→21:00)
[2019-06-04 06:58] LABS: ABS Basophils 0.1 10^3/ul (0-0.2); ABS Eosinophils 0.1 10^3/ul (0-0.6); ABS Lymphocytes 2.7 10^3/ul (1.0-4.8); ABS Monocytes 0.5 10^3/ul (0-0.8); Eosinophil % 1.5 %; Hematocrit 31 % (35-47); Hemoglobin 10.9 g/dL (12.0-16.0); Lymphocyte % 31.9 %; Mean Corpuscular HGB Conc 35 g/dL (31-36); Mean Corpuscular Hemoglobin 30 pg (27-31); Mean Corpuscular Volume 86 fL (80-97); Mean Platelet Volume 7.8 fL (7.4-10.4); Nucleated Red Blood Cells % 0.1; Platelet Count 294 10^3/uL (150-450); Red Blood Count 3.63 10^6 /uL (3.70-4.87); Red Cell Distribution Width 14 % (10-15); White Blood Count 8.4 10^3/uL (3.5-10.8)
[2019-06-04] MEDS: Ibuprofen TAB* 600 MG PO PRN (07:30)
[2019-06-04] MEDS: Docusate CAP* 100 MG PO SCH (07:31)
[2019-06-04 08:13] VITALS: BP 119/60
[2019-06-04] MEDS ORDERED: Ferrous Gluconate TAB* 324 MG TAB PO SCH (09:00)
== END 2019-06-04 12:50 | disposition home or self-care (01) | DRG 560 ==
LOC: MCHOBOUT 15:42 → MCHOB 16:58
PROVIDERS: ADMIT Obstetrics & Gynecology; ATTEND Obstetrics & Gynecology
PROC: 10E0XZZ Delivery of Products of Conception, External Approach (ICD-10-PCS; principal; 2019-06-02)
PROC: 10907ZC Drainage of Amniotic Fluid, Therapeutic from Products of Conception, Via Natural or Artificial Opening (ICD-10-PCS; 2019-06-02)
PROC: 0HQ9XZZ Repair Perineum Skin, External Approach (ICD-10-PCS; 2019-06-02)
DX: O99.324 Drug use complicating childbirth (principal); Z37.0 Single live birth; F12.90 Cannabis use, unspecified, uncomplicated; O70.0 First degree perineal laceration during delivery; O75.89 Other specified complications of labor and delivery; O62.3 Precipitate labor; Z3A.39 39 weeks gestation of pregnancy
CPT/HCPCS: 36415; 80307; 84112; 85025; 86850; 86900; 86901; A9270-GY; G0480; J2210; J2270; J2550